=== PATIENT | male | born 1985 | race African-American/Black ===

== ENCOUNTER 2025-05-03 11:06 | Emergency (ER) | payer OTHER, SELFPAY ==
[2025-05-03 11:23] VITALS: BP 150/84; PULSE 84; RESP 16; TEMP 36.4; O2SAT 99
--- NOTE | 2025-05-03 12:58 | ED.GENADULT ---
HPI - General Adult General Chief complaint: Skin/Abscess/Foreign Body Stated complaint: abscess Time Seen by Provider: 05/03/25 11:55 History of Present Illness HPI narrative: This is a 39-year-old male presenting with a painful scrotal lump. He noticed about 10 days ago. It is growing and becoming more painful. He noticed some scant drainage yesterday. No systemic signs such as fevers chills nausea vomiting diarrhea. Patient has a history of groin and axillary abscesses Related Data Allergies Allergy/AdvReac Type Severity Reaction Status Date / Time No Known Allergies Allergy Verified 05/03/25 11:25 [facility] Past Medical History Medical History (Updated 05/03/25 @ 13:12 by Chente Garcia MD) Healthy adult Surgical History Surgical History (Updated 09/21/19 @ 00:48 by Juli Mendez) No history of previous surgery Social History Social History (Updated 09/21/19 @ 00:49 by Juli Mendez) Smoking status: Unknown if ever smoked Gender identity (if verbalized by the patient): Male Exam Narrative: APPEARANCE: No apparent distress. Head: atraumatic. EYES: EOMI, NOSE: Atraumatic NECK: Trachea midline RESPIRATORY: No increased rate of breathing CARDIOVASCULAR: RRR, ABDOMINAL: Non-distended MUSCULOSKELETAl: No obvious deformities : Normal external genitalia, the base of the scrotum there is a well-circumscribed 1 by cm by 1 cm fluctuant mass. No surrounding cellulitis. NEURO: Alert. Moving 4/4 extremities SKIN:: Warm, dry. Normal color PSYCHIATRIC: Normal affect Course Vital Signs Vital signs: Vital Signs Temperature 97.6 F 05/03/25 11:23 Pulse Rate 84 05/03/25 11:23 Respiratory Rate 16 05/03/25 11:23 Blood Pressure 150/84 H 05/03/25 11:23 Pulse Oximetry 99 05/03/25 11:23 Oxygen Delivery Autopap 05/03/25 11:23 Temperature 97.6 F 05/03/25 11:23 Pulse Rate 84 05/03/25 11:23 Respiratory Rate 16 05/03/25 11:23 Blood Pressure 150/84 H 05/03/25 11:23 Pulse Oximetry 99 05/03/25 11:23 Oxygen Delivery Autopap 05/03/25 11:23 Procedures Abscess I/D scrotum: Date of Incision: 05/03/25 Local Anesthetic: bupivacaine 0.25% Amount of anesthesia used (mL): 5 Technique: incised with #11 blade Amount of fluid expressed (mL): 1 Irrigation: Yes Packing used?: none I&D Results: Blood Medical Decision Making MDM Narrative Medical decision making narrative: -Course: 39-year-old male presenting with scrotal abscess. POC Ultrasound showed a small well-circumscribed superficial hypoechoic mass consistent with abscess. Site was incised and drained under ultrasound guidance. Minimal amount of purulent fluid expressed. Patient says that some drainage earlier so abscess might have already evacuated before arrival here. Patient will be discharged on Bactrim with Urology follow-up. -DDX includes but is not limited to: Scrotal abscess, scrotal cyst, Scrotal cellulits Vital Signs Vital Signs: Vital Signs Temperature 97.6 F 05/03/25 11:23 Pulse Rate 84 05/03/25 11:23 Respiratory Rate 16 05/03/25 11:23 Blood Pressure 150/84 H 05/03/25 11:23 Pulse Oximetry 99 05/03/25 11:23 Oxygen Delivery Autopap 05/03/25 11:23 Temperature 97.6 F 05/03/25 11:23 Pulse Rate 84 05/03/25 11:23 Respiratory Rate 16 05/03/25 11:23 Blood Pressure 150/84 H 05/03/25 11:23 Pulse Oximetry 99 05/03/25 11:23 Oxygen Delivery Autopap 05/03/25 11:23 Discharge Plan Discharge Clinical Impression: Abscess of scrotal wall Patient Disposition: Home Condition: Stable Instructions: Antibiotic Form, Abscess (ED) Additional Instructions: You were seen in the ED for a scrotal abscess. It was incised and drained. Please complete a course of Bactrim. Please follow-up with the urologist in 5-7 days to ensure resolution of the mass. If you develop fevers, reaccumulation of abscess or any new or worsening symptoms please return to the ED immediately. Patient Language: Polish Prescriptions: New sulfamethoxazole-trimethoprim 800-160 mg tablet 1 tablet PO Q12H Qty: 20 0RF No Action miconazole nitrate 2 % cream 1 applic TOPICAL BID Qty: 30 0RF hydrocortisone [Cortisone (hydrocortisone)] 1 % cream 1 applic TOPICAL BID Qty: 30 0RF Follow-up/Referrals: Katsikas,Dayne A., MD [Physician] - 1 Week (Scrotal abscess ) PHYSICIAN,DIRECTOR TRANSPORTATION [Primary Care Provider] -
== END 2025-05-03 13:39 | disposition home or self-care (01) ==
PROVIDERS: Emergency Provider Emergency Medicine
DX: N49.2 Inflammatory disorders of scrotum (principal)
CPT/HCPCS: 55100; 99283